=== PATIENT | female | born 1950 | race Caucasian/White ===

== ENCOUNTER 2024-01-17 12:13 | Observation (INO) ==
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
[2024-01-17 13:30] LABS: Basophils #(Absolute) Auto 0.1 (0.0-0.1); Basophils%(Percent) Auto 0.5 (0.1-0.85); Eosinophils%(Percent) Auto 0.3 % (0.4-2.8); Granulocytes % - Auto 60.5 % (47.8-71.3); Granulocytes#(Absolute)- Auto 6.6 (2.3-6.0); Hematocrit 53.4 % (35.9-46.7); Mean Corpuscular Volume 94.8 fl (81.0-93.7); Monocytes #(Absolute)- Auto 0.8 (1.1-3.1); Monocytes %(Percent)- Auto 7.2 % (3.6-9.8); Platelet Count 200 K/uL (152-353)
[2024-01-17 15:18] LABS: Urine Appearance CLEAR (CLEAR); Urine Blood 4+ (NEG - TRACE); Urine Color YELLOW (STRAW/YELL.); Urine Urobilinogen Normal (NORMAL)
[2024-01-17 15:29] LABS: Urine Amorphous Sediment Negative (Negative); Urine Yeast Negative (Negative)
[2024-01-17] MEDS: ONDANSETRON HCL/PF 4 MG/2 ML VIAL IVP ONE (15:52)
[2024-01-17] MEDS: MORPHINE SULFATE 2 MG/ML CARTRIDGE IV ONE ×2 (15:52→18:22)
[2024-01-17] MEDS: ORPHENADRINE CITRATE 30 MG/ML VIAL IVP ONE (16:34)
[2024-01-17] MEDS ORDERED: KETOROLAC 30 MG/ML INJ VIAL ONE (18:20)
[2024-01-17] MEDS: METHYLPREDNISOLONE SOD SUCC/PF 125 MG/2 ML VIAL IVP ONE (18:20)
[2024-01-17] MEDS: KETOROLAC 30 MG/ML INJ VIAL IVP ONE (18:21)
[2024-01-17] MEDS: IPRATROPIUM/ALBUTEROL SULFATE 3 ML AMPUL.NEB INH ONE (18:30)
[2024-01-17] MEDS: BUDESONIDE 0.5 MG/2 ML AMPUL.NEB INH STA (18:35)
[2024-01-17] MEDS ORDERED: ORPHENADRINE CITRATE 30 MG/ML VIAL IVP PRN (19:54)
[2024-01-17] MEDS ORDERED: ONDANSETRON HCL/PF 4 MG/2 ML VIAL INJ PRN (19:54)
[2024-01-17] MEDS ORDERED: MORPHINE SULFATE 2 MG/ML CARTRIDGE IV PRN (19:54)
[2024-01-17] MEDS: IPRATROPIUM/ALBUTEROL SULFATE 3 ML AMPUL.NEB INH STA (19:56)
[2024-01-18] MEDS: METHYLPREDNISOLONE SOD SUCC/PF 125 MG/2 ML VIAL IVP SCH (02:25)
[2024-01-18 05:21] LABS: Basophils%(Percent) Auto 0.2 (0.1-0.85); Granulocytes % - Auto 77.9 % (47.8-71.3); Hematocrit 44.8 % (35.9-46.7); Mean Corpuscular Volume 93.6 fl (81.0-93.7); Monocytes #(Absolute)- Auto 0.1 (1.1-3.1); Monocytes %(Percent)- Auto 1.7 % (3.6-9.8); Platelet Count 212 K/uL (152-353); White Blood Count 7.7 K/uL (4.3-9.3)
[2024-01-18] MEDS: BUDESONIDE 0.5 MG/2 ML AMPUL.NEB INH SCH (05:50)
[2024-01-18 06:10] LABS: Potassium 5.1 mmol/L (3.6-5.2)
[2024-01-18 07:56] VITALS: RESP 19
[2024-01-18] MEDS: IPRATROPIUM/ALBUTEROL SULFATE 3 ML AMPUL.NEB INH SCH (09:28)
[2024-01-18] MEDS: PANTOPRAZOLE SODIUM 40 MG TABLET.DR PO SCH (10:47)
[2024-01-18] MEDS: NICOTINE 21 MG/HR .TD24 TD SCH (10:49)
[2024-01-18] MEDS: ENOXAPARIN SODIUM 40 MG/0.4 ML SYRINGE SUBQ SCH (10:49)
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
[2024-01-18 12:10] VITALS: BP 104/52; PULSE 77; TEMP 98.4
== END 2024-01-18 14:00 | disposition home or self-care (01) ==
LOC: ED 12:13 → MS 12:13
PROVIDERS: ADMIT Family Medicine; ATTEND Family Medicine
DX: S20.212A Contusion of left front wall of thorax, initial encounter; Z72.0 Tobacco use; S13.4XXA Sprain of ligaments of cervical spine, initial encounter; J44.9 Chronic obstructive pulmonary disease, unspecified; M54.89 Other dorsalgia; S06.0XAA Concussion with loss of consciousness status unknown, initial encounter; R07.89 Other chest pain; S39.012A Strain of muscle, fascia and tendon of lower back, initial encounter; S27.329A Contusion of lung, unspecified, initial encounter; J96.01 Acute respiratory failure with hypoxia; Y93.89 Activity, other specified; R10.9 Unspecified abdominal pain; R53.1 Weakness; V49.50XA Passenger injured in collision with unspecified motor vehicles in traffic accident, initial encounter; S30.1XXA Contusion of abdominal wall, initial encounter; Y92.89 Other specified places as the place of occurrence of the external cause